=== PATIENT | male | born 1990 | race Caucasian/White ===

== ENCOUNTER 2018-03-31 17:33 | Emergency (ER) | payer SELFPAY ==
[~2018-03-31] VITALS: Ht 172.7 cm; Wt 103.4 kg
[2018-03-31 17:37] VITALS: Ht 172.7 cm; Wt 103.4 kg
[2018-03-31 20:23] VITALS: BP 145/68
== END 2018-03-31 20:23 | disposition home or self-care (01) ==
LOC: ED 17:33
DX: S62.324A Displaced fracture of shaft of fourth metacarpal bone, right hand, initial encounter for closed fracture (principal); W22.8XXA Striking against or struck by other objects, initial encounter; Y93.89 Activity, other specified; Y92.89 Other specified places as the place of occurrence of the external cause; Y99.8 Other external cause status